=== PATIENT | male | born 1965 | race Caucasian/White ===

== ENCOUNTER 2021-07-12 11:23 | Inpatient (IN) ==
--- NOTE | 2021-07-12 12:10 | Emergency Department Note ---
Impression & Plan Pulmonary emboli ADMIT ED Provider Note HPI: The patient is a 55-year-old gentleman who presents the emergency department with chief complaint of shortness of breath that has been ongoing for the past several days. Patient states that his shortness of breath does seem to worsen with exertion. He denies any chest pain. Patient denies any recent fever. On arrival here to the ED he is in no acute distress, he is mildly tachycardic but otherwise saturating well on room air. ROS: -Pulmonary: Shortness of breath with exertion *10 point review systems was conducted and is otherwise negative unless stated above *Outpatient medications and allergy history reviewed PE: General: Alert, NAD HEENT: Normocephalic, atraumatic Eyes: Extraocular eye movement is intact, no scleral erythema Pulmonary: Clear to auscultation bilaterally, no wheezing Cardio: Tachycardic rate with regular rhythm GI: Abdomen is soft, nontender : No suprapubic tenderness MSK: No evidence of trauma or malformation of the extremities, no edema Skin: No evidence of rash Neuro: Alert, no focal deficits Psychiatric: Cooperative quality assurance monitor final: - An order was placed for continuous cardiac monitoring - Patient was noted to be in sinus rhythm with rate of 103 EKG: Rate: 103 Rhythm: Sinus tachycardia Intervals: QTC 508 ms, otherwise within normal limits ST changes: No ST elevation Time: 1414 Medical Decision Making: Patient presented to the emergency department the chief complaint of exertional shortness of breath, states is been worsening over about the past 3 weeks. He denies any recent fevers, denies any chest pain. On arrival he is noted to be tachycardic but otherwise he is hemodynamically stable. Patient was initially seen in the [facility] area secondary to nursing staff shortages and lack of bed availability within the emergency room. Orders were placed including IV, lab work, lab work shows evidence of an elevated high-sensitivity troponin at 77, D-dimer also elevated greater than 4000, EKG shows some T wave inversions in leads V1 through V5. No evidence of ST elevation. Patient was roomed in a standard ED bed. Patient remained hemodynamically stable on equipment monitor phototypesetting with only mild tachycardia but otherwise saturating well on room air, blood pressure stable. CT angiography of the chest shows evidence of bilateral pulmonary emboli with saddle embolus. There is evidence of right heart strain on CT imaging. I discussed the above f indings with the on-call patternmaker helper, Dr. Duarte, who states he will evaluate the patient at the bedside. At this time we will hold off on potential lysis secondary to his hemodynamic stability, no oxygen requirement. Patient was given aspirin, he was started on heparin drip and given heparin bolus. Case was discussed with the on-call admitting resident for [facility] the patient was admitted in hemodynamically stable condition for further management by the hospitalist service and the patternmaker helper. * CRITICAL CARE TIME: ( 55 ) minutes -Management of bilateral pulmonary emboli with saddle embolus and elevated troponin requiring initiation of heparin drip, interpretation of diagnostic studies, time spent at the bedside, discussion with other physicians/specialist, arrangement of admission Diagnosis: 1. Bilateral pulmonary emboli, acute, with right heart strain 2. Elevated troponin level 3. Tachycardia Disposition: Admission Kei Cevallos DO Emergency Medicine Past Med/Surg History Social History Smoking Status: Never smoker Feels Safe at Home: Yes Allergies Allergies Allergy/AdvReac Type Severity Reaction Status Date / Time No Known Allergies Allergy Unverified 07/12/21 14:44 Home Meds Home Medications Medication Instructions Recorded Confirmed No Known Home Medications 07/12/21 07/12/21 Results & Data (ED) Vital Signs Vital Signs - 24 hr 07/12/21 11:41 07/12/21 11:45 07/12/21 14:30 Temperature 35.9 C L Temperature Source Temporal Artery Scan Pulse Rate 112 H Pulse Rate from SpO2 Sensor Respiratory Rate 20 Respiratory Effort / Characteristics Non-Labored Respiratory Depth Normal Blood Pressure 154/108 H 151/102 H Blood Pressure Mean 123 118 Blood Pressure Position Sitting Pulse Oximetry 93 Oxygen Delivery Method Room Air Room Air Sepsis Recent Fever Within 48 Hours No Sepsis New/Unexplained Change in Mental Status N/A Sepsis Action Taken by Nursing No Action Required 07/12/21 14:31 07/12/21 14:35 07/12/21 14:45 Temperature Temperature Source Pulse Rate 103 H 99 H Pulse Rate from SpO2 Sensor 103 H 97 H Respiratory Rate 14 20 Respiratory Effort / Characteristics Respiratory Depth Blood Pressure 138/102 H Blood Pressure Mean 114 Blood Pressure Position Pulse Oximetry 92 95 93 Oxygen Delivery Method Room Air Sepsis Recent Fever Within 48 Hours Sepsis New/Unexplained Change in Mental Status Sepsis Action Taken by Nursing 07/12/21 15:00 07/12/21 15:12 Temperature Temperature Source Pulse Rate 97 H 101 H Pulse Rate from SpO2 Sensor 99 H Respiratory Rate 9 L 18 Respiratory Effort / Characteristics Respiratory Depth Blood Pressure 154/89 H Blood Pressure Mean 110 Blood Pressure Position Pulse Oximetry 94 94 Oxygen Delivery Method Room Air Sepsis Recent Fever Within 48 Hours Sepsis New/Unexplained Change in Mental Status Sepsis Action Taken by Nursing Laboratory Data Result diagrams: 07/12/21 12:18 07/12/21 12:18 Lab Results 07/12/21 07/12/21 07/12/21 Range/Units 12:18 12:18 12:18 WBC 7.90 (4.8-10.8) K/uL RBC 5.42 (4.7-6.1) M/uL Hgb 16.3 (14.0-18.0) g/dL Hct 46.8 (42-52) % MCV 86.3 (80-100) fL MCH 30.1 (25-34) pg MCHC 34.8 (32-36) g/dL RDW Std Deviation 39.8 (36.4-46.3) fL RDW Coeff of Warren 12.6 (11.5-14.5) % Plt Count 173 (130-400) K/uL MPV 10.1 (7.4-10.4) fL Immature Gran % (Auto) 0.1 % Neut % (Auto) 68.9 % Lymph % (Auto) 20.5 % Bullitt % (Auto) 9.1 % Eos % (Auto) 1.0 % Baso % (Auto) 0.4 % Neut # (Auto) 5.44 (1.4-6.5) K/uL Lymph # (Auto) 1.62 (1.2-3.4) K/uL Bullitt # (Auto) 0.72 H (0.11-0.59) K/uL Eos # (Auto) 0.08 (0-0.5) K/uL Baso # (Auto) 0.03 (0-0.2) K/uL Immature Gran # (Auto) 0.01 (0.00-0.02) K/uL PT 11.5 (9.0-12.0) Seconds INR 1.1 (0.9-1.1) APTT 25.5 (21.0-31.0) Seconds PTT Ratio 0.9 D-Dimer 4310 H* (0-500) ug/L FEU Sodium 139 (136-145) mmol/L Potassium 3.7 (3.5-5.1) mmol/L Chloride 103 (98-107) mmol/L Carbon Dioxide 30 (21-32) mmol/L Anion Gap 6 (3-11) BUN 18 (6-23) mg/dl Creatinine 1.06 (0.6-1.4) mg/dl Est Cr Clr Drug Dosing 104.9 ml/min Est GFR ( Amer) 92.4 ml/min Est GFR (Non-Af Amer) 79.7 ml/min BUN/Creatinine Ratio 17.0 (10-20) Glucose 104 H (70-99(Fasting)) mg/dl Calcium 9.2 (8.5-10.1) mg/dl Magnesium 2.2 (1.7-2.4) mg/dl Total Bilirubin 0.7 (0.2-1.0) mg/dl AST 33 (13-39) U/L ALT 48 (7-52) U/L Alkaline Phosphatase 61 (34-104) U/L Troponin I High Sens 77.7 H* (0-20) pg/ml Total Protein 7.4 (6.0-8.3) gm/dl Albumin 4.6 (3.4-5.0) gm/dl Globulin 2.8 (2.5-4.0) gm/dl Albumin/Globulin Ratio 1.6 (0.9-2) SARS-CoV-2, RNA, NAAT (NEGATIVE) 07/12/21 Range/Units 14:00 WBC (4.8-10.8) K/uL RBC (4.7-6.1) M/uL Hgb (14.0-18.0) g/dL Hct (42-52) % MCV (80-100) fL MCH (25-34) pg MCHC (32-36) g/dL RDW Std Deviation (36.4-46.3) fL RDW Coeff of Warren (11.5-14.5) % Plt Count (130-400) K/uL MPV (7.4-10.4) fL Immature Gran % (Auto) % Neut % (Auto) % Lymph % (Auto) % Bullitt % (Auto) % Eos % (Auto) % Baso % (Auto) % Neut # (Auto) (1.4-6.5) K/uL Lymph # (Auto) (1.2-3.4) K/uL Bullitt # (Auto) (0.11-0.59) K/uL Eos # (Auto) (0-0.5) K/uL Baso # (Auto) (0-0.2) K/uL Immature Gran # (Auto) (0.00-0.02) K/uL PT (9.0-12.0) Seconds INR (0.9-1.1) APTT (21.0-31.0) Seconds PTT Ratio D-Dimer (0-500) ug/L FEU Sodium (136-145) mmol/L Potassium (3.5-5.1) mmol/L Chloride (98-107) mmol/L Carbon Dioxide (21-32) mmol/L Anion Gap (3-11) BUN (6-23) mg/dl Creatinine (0.6-1.4) mg/dl Est Cr Clr Drug Dosing ml/min Est GFR ( Amer) ml/min Est GFR (Non-Af Amer) ml/min BUN/Creatinine Ratio (10-20) Glucose (70-99(Fasting)) mg/dl Calcium (8.5-10.1) mg/dl Magnesium (1.7-2.4) mg/dl Total Bilirubin (0.2-1.0) mg/dl AST (13-39) U/L ALT (7-52) U/L Alkaline Phosphatase (34-104) U/L Troponin I High Sens (0-20) pg/ml Total Protein (6.0-8.3) gm/dl Albumin (3.4-5.0) gm/dl Globulin (2.5-4.0) gm/dl Albumin/Globulin Ratio (0.9-2) SARS-CoV-2, RNA, NAAT NEGATIVE (NEGATIVE) Administered Medications Heparin Sodium/Dextrose (Heparin Sodium/Dextrose) 25,000 units in 500 mls @ 33 mls/hr IV .[id number] [facility]; Protocol Stop: 08/11/21 14:14 Last Admin: 07/12/21 14:27 Dose: 1,650 units/hr, 33 mls/hr Documented by: [id number] Cosigned by: [id number] Discontinued Medications Heparin Sodium (Porcine) (Heparin Sod (Porcine) 1000 Unit/Ml) 1 units IV NOW ONE Stop: 07/12/21 14:14 Last Admin: 07/12/21 14:26 Dose: 7,000 units Documented by: [id number] Cosigned by: [id number] Heparin Sodium/Dextrose (Heparin Iv Adult Wt-Based Standard With Bolus Protocol) 1 ea IV NOW STA; Protocol Stop: 07/12/21 13:59 Last Admin: 07/12/21 14:33 Dose: Not Given Documented by: [id number] Ioversol (Optiray 320 125ml) 120 ml IV ONCE ONE Stop: 07/12/21 13:54 Last Admin: 07/12/21 13:54 Dose: 120 ml Documented by: [id number] Imaging Data Radiologist's Impression: Chest CTA 07/12/21 13:05 CT ANGIOGRAPHY OF THE CHEST, PULMONARY EMBOLUS PROTOCOL CLINICAL HISTORY: Shortness of breath. Evaluate for pulmonary embolus. COMPARISON STUDY: No previous studies for comparison. TECHNIQUE: Following IV administration of 120 mL of Optiray, helical axial images of the chest were obtained utilizing the pulmonary embolus protocol. Maximal intensity projections and sagittal and coronal reformats were viewed on an independent 3D workstation. IV contrast was administered without complication. Automated exposure control was utilized for the study. A dose lowering technique was utilized adhering to the principles of ALARA. CT DOSE: 856.78 mGy.cm FINDINGS: Extensive bilateral pulmonary emboli are noted, including several saddle emboli. Emboli extend into the lobar and segmental branches of both lungs. There is straightening of the interventricular septum with slight leftward bowing. Dilatation of the right heart chambers is noted. There is no pericardial effusion. No thoracic lymphadenopathy is present. There is no pulmonary infarct. Cluster tree-in-bud nodules within the superior segment of the left lower lobe are present. Central airways are patent. No acute fracture or suspicious lesion within the visualized bony thorax is present. A few subcentimeter lateral segment hepatic lesions are too small to characterize. However, these are probably benign. IMPRESSION: 1. Extensive bilateral pulmonary emboli, including several saddle emboli. CT findings consistent with right heart strain. Findings discussed with Dr. Cevallos at time of dictation. 2. Small cluster of tree-in-bud nodules within the superior segment of the left lower lobe suggestive of an infectious process. ACT 112: Negative or not required by law. Electronically signed by: Inderjit Dias M.D. 07/12/2021 2:06 PM Discharge Plan Visit Data Chief Complaint: Shortness of Breath/Dyspnea Stated Complaint: DIFFICULTY BREATHING, LIGHT HEADED, WEAK ED Provider: Kei Cevallos Discharge Problem: Pulmonary emboli Forms Stand Alone Forms: [facility] 1CLICK Prescriptions Prescriptions: No Action No Known Home Medications RF: 0 Referrals Referrals: Delfino Bender MD [Primary Care Provider] - Discharge Problem: Pulmonary emboli Qualifiers: Pulmonary embolism type: saddle Chronicity: acute Acute cor pulmonale presence: unspecified Qualified Code(s): I26.92 - Saddle embolus of pulmonary artery without acute cor pulmonale
[2021-07-12 12:35] LABS: Basophils # (auto) 0.03 K/uL (0-0.2); Basophils % (auto) 0.4 %; Eosinophils # (auto) 0.08 K/uL (0-0.5); Hematocrit (blood only) 46.8 % (42-52); Hemoglobin 16.3 g/dL (14.0-18.0); Immature Granulocytes # (auto) 0.01 K/uL (0.00-0.02); Immature Granulocytes % (auto) 0.1 %; Lymphocytes # (auto) 1.62 K/uL (1.2-3.4); Lymphocytes % (auto) 20.5 %; Mean Corpuscular Hemoglobin 30.1 pg (25-34); Mean Corpuscular Hgb Conc 34.8 g/dL (32-36); Mean Corpuscular Volume 86.3 fL (80-100); Mean Platelet Volume 10.1 fL (7.4-10.4); Monocytes # (auto) 0.72 K/uL (0.11-0.59); Monocytes % (auto) 9.1 %; Neutrophils # (auto) 5.44 K/uL (1.4-6.5); Neutrophils % (auto) 68.9 %; Platelet Count 173 K/uL (130-400); RDW Coefficient of Variation 12.6 % (11.5-14.5); RDW Standard Deviation 39.8 fL (36.4-46.3); Red Blood Count 5.42 M/uL (4.7-6.1)
[2021-07-12 12:50] LABS: INR 1.1 (0.9-1.1); Partial Thromboplastin Ratio 0.9; Partial Thromboplastin Time 25.5 Seconds (21.0-31.0); Prothrombin Time 11.5 Seconds (9.0-12.0)
[2021-07-12 13:02] LABS: D Dimer 4310 ug/L FEU (0-500)
[2021-07-12 13:03] LABS: Albumin Globulin Ratio 1.6 (0.9-2); Albumin Level 4.6 gm/dl (3.4-5.0); Bilirubin,Total 0.7 mg/dl (0.2-1.0); Calcium 9.2 mg/dl (8.5-10.1); Creatinine Clr Calc Pharmacy 104.9 ml/min; Est GFR (African American) 92.4 ml/min; Est GFR (Non-African American) 79.7 ml/min; Globulin 2.8 gm/dl (2.5-4.0); Magnesium 2.2 mg/dl (1.7-2.4); Potassium 3.7 mmol/L (3.5-5.1); Total Protein 7.4 gm/dl (6.0-8.3)
[2021-07-12 13:14] LABS: Troponin I High Sensitivity 77.7 pg/ml (0-20)
[2021-07-12] MEDS ORDERED: OPTIRAY 320 125ml IV ONE (13:53)
[2021-07-12] MEDS ORDERED: Heparin IV Adult Wt-Based Standard WITH Bolus Protocol IV STA (13:58)
--- NOTE | 2021-07-12 14:08 | CT Scan Report ---
CT ANGIOGRAPHY OF THE CHEST, PULMONARY EMBOLUS PROTOCOL CLINICAL HISTORY: Shortness of breath. Evaluate for pulmonary embolus. COMPARISON STUDY: No previous studies for comparison. TECHNIQUE: Following IV administration of 120 mL of Optiray, helical axial images of the chest were o btained utilizing the pulmonary embolus protocol. Maximal intensity projections and sagittal and cor onal reformats were viewed on an independent 3D workstation. IV contrast was administered without co mplication. Automated exposure control was utilized for the study. A dose lowering technique was ut ilized adhering to the principles of ALARA. CT DOSE: 856.78 mGy.cm FINDINGS: Extensive bilateral pulmonary emboli are noted, including several saddle emboli. Emboli ex tend into the lobar and segmental branches of both lungs. There is straightening of the interventricu lar septum with slight leftward bowing. Dilatation of the right heart chambers is noted. There is no pericardial effusion. No thoracic lymphadenopathy is present. There is no pulmonary infarct. Cluster tree-in-bud nodules within the superior segment of the left lower lobe are present. Central airways a re patent. No acute fracture or suspicious lesion within the visualized bony thorax is present. A few subcentimeter lateral segment hepatic lesions are too small to characterize. However, these are prob ably benign. IMPRESSION: 1. Extensive bilateral pulmonary emboli, including several saddle emboli. CT findings consistent with right heart strain. Findings discussed with Dr. Cevallos at time of dictation. 2. Small cluster of tree-in-bud nodules within the superior segment of the left lower lobe suggestive of an infectious process. ACT 112: Negative or not required by law. Electronically signed by: Inderjit Dias M.D. 07/12/2021 2:06 PM
[2021-07-12] MEDS ORDERED: HEPARIN SOD (PORCINE) 1000 UNIT/ML IV ONE (14:13)
[2021-07-12] MEDS: HEPARIN SODIUM/DEXTROSE 25,000 UNITS/500 ML BAG IV SCH (14:27)
--- NOTE | 2021-07-12 15:19 | History & Physical Report ---
Date of Service July 12, 2021 Assessment & Plan (1) Pulmonary emboli: Plan: Acute pulmonary emboli and acute deep vein thrombosis in a n sedaentary male with BMI 38. sPESI: 1, 8.9% mortality Will admit to PCU. Placed on heparin drip. CT scan of chest: 1. Extensive bilateral pulmonary emboli, including several saddle emboli. CT findings consistent with right heart strain. 2. Small cluster of tree-in-bud nodules within the superior segment of the left lower lobe suggestive of an infectious process. Doppler U/S of lower extremities: Left femoral and popliteal vein thrombus. This was a provoked episode. May not require lifelong anticoagulation. History of Present Illness Chief Complaint: SOB Primary Care Provider: Delfino Bender MD This is a pleasant 55 yo male who who presents to the hospital with SOB. Patient states this SOB began this past Sunday and has gradually worsened. He denies any fever, chills, nausea, vomiting, unintentional weight loss. Patient denies any personal history of blood clots, nor family history. Patient reports he has had a sedentary lifestyle over the past few years since [facility]. Patient reports prior that he would go to the Gym and run for miles. 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 He does have a sedentary lifestyle and states for 3-4 hours straight regularly. No family history of blood clots. Social history: Lifetime non-smoker. Allergies Allergy/AdvReac Type Severity Reaction Status Date / Time No Known Allergies Allergy Unverified 07/12/21 14:44 Home Medications Medication Instructions Recorded Confirmed Type No Known Home Medications 07/12/21 07/12/21 History Past Med/Surg History Social History Smoking Status: Never smoker Feels Safe at Home: Yes Review of Systems Constitutional: no fever Eyes: no blind spots and no diplopia Ear, Nose, Mouth, Throat: no ear pain Respiratory: no cough and no change in sputum Cardiovascular: + dyspnea and + dyspnea on exertion Gastrointestinal: no abdominal pain and no bloating Genitourinary: no dysuria or no urinary frequency Musculoskeletal: no swelling Integumentary: no acne Neurologic: no gait abnormality and no falls Psychiatric: no behavioral changes Endocrine: no fatigue and no polydipsia Hematologic / Lymphatic: no easy bleeding and no coagulopathy Allergy / Immunological: no GI upset with certain foods Physical Exam Constitutional: WD/WN, vitals as above Eyes: PERRL, conjunctivae normal, anicteric sclerae ENMT: external ear and nose normal, oropharynx normal Neck: trachea midline, no thyromegaly Respiratory: normal respiratory effort, lungs clear to auscultation Cardiovascular: Rate/Rhythm: regular rhythm and + tachycardic Heart Sounds: normal S1 and normal S2 Gastrointestinal (Abdomen): normal bowel sounds, soft, nontender, no hepatosplenomegaly Musculoskeletal: no cyanosis or clubbing, extremities motor strength 5/5 Skin: no rashes, warm and dry Neurologic: PERRL, EOMI, accommodation nl, no face palsy, no dysarthria Psychiatric: A+Ox3, euthymic affect Lymphatic: no cervical or axillary lymphadenopathy Results & Data Results & Data ([facility]) Vital Signs (Past 12 Hours) Vital Signs Temp Pulse Resp BP Pulse Ox 07/12/21 15:12 101 H 18 94 07/12/21 15:00 97 H 9 L 154/89 H 94 07/12/21 14:45 99 H 20 138/102 H 93 07/12/21 14:35 95 07/12/21 14:31 103 H 14 92 07/12/21 14:30 151/102 H 07/12/21 11:41 35.9 C L 112 H 20 154/108 H 93 Code Status & VTE Plan VTE Prophylaxis Plan VTE Prophylaxis will be ordered: Yes PG Care Time/CCT Total # of Minutes Spent Total Time Spent with Patient: Total time spent is greater than 50% in coordination of care (as documented) at patient's floor/unit and/or counseling patient: Coding Level of Care Code 68115 Initial Inpt Care Lvl 3 Diagnoses Pulmonary emboli I26.92 Acute cor pulmonale presence: unspecified Chronicity: acute Pulmonary embolism type: saddle (1) Pulmonary emboli Acute cor pulmonale presence: unspecified Chronicity: acute Pulmonary embolism type: saddle Qualified Code(s): I26.92 - Saddle embolus of pulmonary artery without acute cor pulmonale
--- NOTE | 2021-07-12 15:28 | Electrocardiogram Report ---
Test Reason : Blood Pressure : / mmHG Vent. Rate : 103 BPM Atrial Rate : 103 BPM P-R Int : 152 ms QRS Dur : 088 ms QT Int : 388 ms P-R-T Axes : 067 121 -24 degrees QTc Int : 508 ms Poor data quality, interpretation may be adversely affected Sinus tachycardia Right axis deviation T wave abnormality, consider inferior ischemia T wave abnormality, consider anterolateral ischemia Abnormal ECG No previous ECGs available Confirmed by Wilner Hitchcock ([id number]) on 07/12/2021 3:28:15 PM Referred By: REFERRED SELF Confirmed By:Wilner Hitchcock
--- NOTE | 2021-07-12 15:37 | XCELERA ---
[id number]
--- NOTE | 2021-07-12 15:38 | XRay Report ---
XR chest 1V portable HISTORY: Shortness of breath. COMPARISON: None. FINDINGS: No pneumothorax. No pleural fusions. The heart is normal in size. No focal lung consolidati ons to suggest pneumonia. No evidence for pulmonary edema. A few left basilar linear densities favor subsegmental atelectasis are scarring. IMPRESSION: No acute process. ACT 112: Negative or not required by law. Electronically signed by: Pedrito Melvin M.D. 07/12/2021 3:36 PM
--- NOTE | 2021-07-12 16:13 | Pulmonary Consultation ---
Date of Consultation July 12, 2021 Assessment & Plan (1) Pulmonary emboli: -- Pulmonary embolism sPESI: 1, 8.9% mortality Troponin 77, BNP 137 Unprovoked EKG: Sinus tachycardia with right axis deviation, T wave inversions on the lateral leads 2D echo 07/12/2021: EF 55 to 60%, moderately reduced right-ventricular function, mildly dilated RV Plan: Patient is following to intermediate-high risk PE given the elevated troponin and BNP along with moderately reduced right ventricular function on the 2D echo These are the cases where catheter directed thrombolysis could be considered. Systemic tPA 50 mg could also be considered. Given the hemodynamic stability of the patient and saturation being 94% on room air with no chest pain, heparin drip IV is okay to be continued for the time being I would like to get recommendation from tertiary center if they are willing to do catheter directed thrombolysis for the patient given the high clot burden At the patient's case hypoxic and/or hypotensive then 50 mg tPA IV should be given Follow-up Doppler bilateral lower extremity Factor V Leiden, prothrombin mutation as well as homocystine level in the serum ordered Rest of the hypercoagulable work-up to be done after 3 months Patient will likely need lifelong anticoagulation Case was discussed with Dr. Alas and Dr. Reyes Please note the above document was generated using voice recognition software. It may contain grammatical, syntax or spelling errors.Any formal questions or concerns about the content, text or information contained within the body of this dictation should be directly addressed to the provider for clarification. Acute cor pulmonale presence: unspecified Chronicity: acute Pulmonary embolism type: saddle Qualified Code(s): I26.92 - Saddle embolus of pulmonary artery without acute cor pulmonale History of Present Illness History of Present Illness 55-year-old male presented to the hospital because of shortness of breath Past medical history: Nonsignificant Patient is not vaccinated against COVID-19 As per the patient he started complaining of easy fatigability and shortness of breath while doing even regular work at home starting Sunday. Today it got worse to such a degree that he had to come to the ER Denies any cough, no hemoptysis No chest pain, no dizziness, no palpitation, no diaphoresis No fever or chills No dysuria, diarrhea. Denies any history of blood clots in the past No recent travel history. 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 He does have sedentary lifestyle and states for 3-4 hours straight regularly. No family history of blood clots. Social history: Lifetime non-smoker. Allergies Allergy/AdvReac Type Severity Reaction Status Date / Time No Known Allergies Allergy Unverified 07/12/21 14:44 Home Medications Medication Instructions Recorded Confirmed Type No Known Home Medications 07/12/21 07/12/21 History Patient History Social History Smoking Status: Never smoker Feels Safe at Home: Yes Review of Systems Review of Systems: All systems reviewed & are unremarkable except as noted in HPI & below Physical Exam Physical Exam: Constitutional: No acute distress HEENT: EOMI, PERRLA Respiratory system: Good air entry bilaterally, no wheeze, no rhonchi, no crackles CVS: S1-S2 positive, no murmurs or gallops, tachycardia Abdomen: Soft, nontender, nondistended, positive bowel sounds x4, obese Extremities: +2 pulses bilaterally radialis/ dorsalis pedis, no cyanosis, +1 pitting edema bilateral lower extremity Neuro: Awake alert oriented x3 Psych: Normal mood and affect G/U: No Ashley Skin: no rashes, warm and dry Lymphatic: no cervical or axillary lymphadenopathy Results & Data Results & Data ([facility]) Vital Signs (Past 12 Hours) Vital Signs Temp Pulse Resp BP Pulse Ox 07/12/21 14:35 95 07/12/21 14:31 103 H 14 92 07/12/21 14:30 151/102 H 07/12/21 11:41 35.9 C L 112 H 20 154/108 H 93 Laboratory Results 07/12/21 12:18 07/12/21 12:18 PG Care Time/CCT Total # of Minutes Spent Total Time Spent with Patient: Total time spent is greater than 50% in coordination of care (as documented) at patient's floor/unit and/or counseling patient: [place] [address] Inpt Consult Level 5 Patient Type New Diagnoses Pulmonary emboli I26.92 Acute cor pulmonale presence: unspecified Chronicity: acute Pulmonary embolism type: saddle
--- NOTE | 2021-07-12 16:52 | Ultrasound Report ---
US venous doppler LE BI CLINICAL HISTORY: r/o DVT, B/l TECHNIQUE: Bilateral lower extremity real-time compression venous ultrasound with Color Doppler imagi ng. Utilizing real-time ultrasonic imaging multiple real time high-resolution ultrasonic images with compression and noncompression maneuvers of the deep venous system in addition to color doppler imagi ng were performed from the common femoral vein through the proximal calf veins. COMPARISON: None available at the time of this dictation. FINDINGS: No deep venous thrombosis seen on the right. The left, there is a thrombus in the left femoral vein e xtending to the popliteal vein. Impression: Left femoral and popliteal vein thrombus. No evidence of right deep venous thrombus. ACT 112: Negative or not required by law. Electronically signed by: Jonathon Wilson M.D. 07/12/2021 4:50 PM
[2021-07-12 20:52] LABS: INR 1.1 (0.9-1.1); Prothrombin Time 11.9 Seconds (9.0-12.0)
[2021-07-12] MEDS ORDERED: LORATADINE 10 MG TAB PO ONE (21:15)
[2021-07-12] MEDS ORDERED: MELATONIN 3 MG TAB PO PRN (21:17)
[2021-07-12 21:49] LABS: Partial Thromboplastin Ratio 1.8
[2021-07-12 21:51] LABS: Partial Thromboplastin Time 49.8 Seconds (21.0-31.0)
[2021-07-13 04:37] LABS: Hematocrit (blood only) 44.2 % (42-52); Hemoglobin 15.4 g/dL (14.0-18.0); Mean Corpuscular Hemoglobin 30.4 pg (25-34); Mean Corpuscular Hgb Conc 34.8 g/dL (32-36); Mean Corpuscular Volume 87.2 fL (80-100); Mean Platelet Volume 10.3 fL (7.4-10.4); Platelet Count 168 K/uL (130-400); RDW Coefficient of Variation 12.4 % (11.5-14.5); RDW Standard Deviation 39.6 fL (36.4-46.3); Red Blood Count 5.07 M/uL (4.7-6.1); White Blood Count 7.83 K/uL (4.8-10.8)
[2021-07-13 04:51] LABS: Albumin Level 4.2 gm/dl (3.4-5.0); BUN Creatinine Ratio 14.3 (10-20); Bilirubin Direct 0.2 mg/dl (0-0.2); Bilirubin,Total 0.9 mg/dl (0.2-1.0); Calcium 8.9 mg/dl (8.5-10.1); Chol HDL Ratio 5.8 (0-5); Creatinine Clr Calc Pharmacy 112.6 ml/min; Est GFR (African American) 101.6 ml/min; Est GFR (Non-African American) 87.7 ml/min; Potassium 3.7 mmol/L (3.5-5.1); Total Protein 6.8 gm/dl (6.0-8.3)
[2021-07-13 05:04] LABS: Partial Thromboplastin Ratio 1.7
[2021-07-13 05:24] LABS: Partial Thromboplastin Time 47.2 Seconds (21.0-31.0)
[2021-07-13] MEDS: HEPARIN SODIUM/DEXTROSE 25,000 UNITS/500 ML BAG IV SCH ×2 (06:27→20:40)
--- NOTE | 2021-07-13 09:04 | Pulmonology Progress Note ---
Date of Service July 13, 2021 Assessment & Plan (1) Pulmonary emboli: Acute cor pulmonale presence: unspecified Chronicity: acute Pulmonary embolism type: saddle Qualified Code(s): I26.92 - Saddle embolus of pulmonary artery without acute cor pulmonale (2) DVT (deep venous thrombosis): Plan: -- Pulmonary embolism sPESI: 1, 8.9% mortality Troponin 77, BNP 137 Unprovoked Case was discussed with controller coal or ore at [place] on 07/12/2021 by , recommended to continue with heparin drip for the time being and if there is any worsening then transferring the patient if need be EKG: Sinus tachycardia with right axis deviation, T wave inversions on the lateral leads 2D echo 07/12/2021: EF 55 to 60%, moderately reduced right-ventricular function, mildly dilated RV -- Acute left-sided DVT Left femoral popliteal vein Plan: Recommend continuing with heparin drip for another 24-48 hours and then transitioning it to DOACs In the meantime if there is any worsening in patient's respiratory or hemodynamic status, tPA 50 mg would be considered Incentive spirometry will be beneficial. All question inquiries of the patient were answered in depth Case was discussed with RN who was also at bedside during examination and interrogation Please note the above document was generated using voice recognition software. It may contain grammatical, syntax or spelling errors.Any formal questions or concerns about the content, text or information contained within the body of this dictation should be directly addressed to the provider for clarification. Admission and Anticipated Discharge Date Admission Date: July 12, 2021 Subjective Patient seen and examined at bedside. No acute distress, no adverse events overnight Denies any chest pain, no dizziness, no palpitation, no diaphoresis He was saturating 94% on room air at the time of examination with heart rate in the high 90s. Fair appetite No nausea or vomiting Review of Systems Review of Systems: All systems reviewed & are unremarkable except as noted in Subjective Physical Exam Physical Exam: Constitutional: No acute distress HEENT: EOMI, PERRLA Respiratory system: Good air entry bilaterally, no wheeze, no rhonchi, no crackles CVS: S1-S2 positive, no murmurs or gallops, tachycardia Abdomen: Soft, nontender, nondistended, positive bowel sounds x4, obese Extremities: +2 pulses bilaterally radialis/ dorsalis pedis, no cyanosis, +1 pitting edema bilateral lower extremity Neuro: Awake alert oriented x3 Psych: Normal mood and affect G/U: No Ashley Skin: no rashes, warm and dry Lymphatic: no cervical or axillary lymphadenopathy Results & Data Results & Data ([facility]) Vital Signs (Past 12 Hours) Vital Signs Temp Pulse Pulse Resp BP Pulse Ox 07/13/21 07:00 36.5 C 93 H 16 149/89 H 91 07/13/21 03:00 36.6 C 90 15 130/97 93 07/13/21 00:31 101 H 07/12/21 22:49 37 C 99 H 16 128/86 92 07/12/21 22:01 105 H 07/12/21 21:44 36.8 C 107 H 15 145/92 H 93 Laboratory Results 07/13/21 04:06 07/13/21 04:06 PG Care Time/CCT Total # of Minutes Spent Total Time Spent with Patient: Total time spent is greater than 50% in coordination of care (as documented) at patient's floor/unit and/or counseling patient: Coding Level of Care Code 33934 Subseq Hosp Care Lvl 2 Diagnoses Pulmonary emboli I26.92 Acute cor pulmonale presence: unspecified Chronicity: acute Pulmonary embolism type: saddle DVT (deep venous thrombosis) I82.409
[2021-07-13] MEDS ORDERED: FAMOTIDINE 20 MG TAB PO ONE (12:00)
[2021-07-13] MEDS ORDERED: FAMOTIDINE 10 MG TABLET PO PRN (12:16)
--- NOTE | 2021-07-13 12:17 | Hospitalist Progress Note ---
Date of Service July 13, 2021 Assessment & Plan (1) Pulmonary emboli: Plan: Acute pulmonary emboli and acute deep vein thrombosis Risk factors of sedentary lifestyle and BMI 38. sPESI: 1, 8.9% mortality Continue on PCU. Continue on standard dose heparin IV drip. Consider switching to oral anticoagulation tomorrow. CT scan of chest: 1. Extensive bilateral pulmonary emboli, including several saddle emboli. CT findings consistent with right heart strain. 2. Small cluster of tree-in-bud nodules within the superior segment of the left lower lobe suggestive of an infectious process. Doppler U/S of lower extremities: Left femoral and popliteal vein thrombus. Given lack of reversible cause would recommend lifelong treatment. Routine cancer screening to be performed as an outpatient Admission and Anticipated Discharge Date Admission Date: July 12, 2021 Subjective Given severity of illness patient appears to be doing very well. He reports slight improvement in fatigue and shortness of breath since admission. No respiratory distress and speaking in full sentences. Requesting Tums for mild heartburn. Reports taking these usually once a month. Requesting something to help with sleep just while in the hospital Review of Systems Review of Systems: All systems reviewed & are unremarkable except as noted in Subjective Physical Exam Constitutional: WD/WN, vitals as above + obese Respiratory: normal respiratory effort, lungs clear to auscultation Cardiovascular: Rate/Rhythm: regular rhythm and + tachycardic Heart Sounds: no murmur Extremities: normal capillary refill; no calf tenderness and no pedal edema Gastrointestinal (Abdomen): Percussion/Palpation: abdomen soft; abdomen nontender Skin: no rashes, warm and dry Neurologic: moves all extremities and awake; not confused Psychiatric: A+Ox3, euthymic affect Results & Data Results & Data ([facility]) Vital Signs (Past 12 Hours) Vital Signs Temp Pulse Pulse Resp BP Pulse Ox 07/13/21 11:00 36.7 C 98 H 18 146/95 H 90 07/13/21 08:01 91 H 07/13/21 07:00 36.5 C 93 H 16 149/89 H 91 07/13/21 03:00 36.6 C 90 15 130/97 93 07/13/21 00:31 101 H PG Care Time/CCT Total # of Minutes Spent Total Time Spent with Patient: Total time spent is greater than 50% in coordination of care (as documented) at patient's floor/unit and/or counseling patient: Coding Level of Care Code 50127 Subseq Hosp Care Lvl 2 Diagnoses Pulmonary emboli I26.92 Acute cor pulmonale presence: unspecified Chronicity: acute Pulmonary embolism type: saddle (1) Pulmonary emboli Acute cor pulmonale presence: unspecified Chronicity: acute Pulmonary embolism type: saddle Qualified Code(s): I26.92 - Saddle embolus of pulmonary artery without acute cor pulmonale
[2021-07-13] MEDS: ZOLPIDEM TARTRATE 5 MG TAB PO PRN (23:28)
[2021-07-14 07:12] LABS: Partial Thromboplastin Ratio 1.6; Partial Thromboplastin Time 43.7 Seconds (21.0-31.0)
--- NOTE | 2021-07-14 07:50 | Pulmonology Progress Note ---
Date of Service July 14, 2021 Assessment & Plan (1) Pulmonary emboli: Acute cor pulmonale presence: unspecified Chronicity: acute Pulmonary embolism type: saddle Qualified Code(s): I26.92 - Saddle embolus of pulmonary artery without acute cor pulmonale (2) DVT (deep venous thrombosis): Plan: -- Pulmonary embolism sPESI: 1, 8.9% mortality Troponin 77, BNP 137 Unprovoked Case was discussed with subsorter at [place] on 07/12/[address] Reyes, recommended to continue with heparin drip for the time being and if there is any worsening then transferring the patient if need be EKG on presentation: Sinus tachycardia with right axis deviation, T wave inversions on the lateral leads 2D echo 07/12/2021: EF 55 to 60%, moderately reduced right-ventricular function, mildly dilated RV -- Acute left-sided DVT Left femoral popliteal vein Plan: Okay to transition to DOACs in the evening. Patient will likely need oxygen on discharge. In the meantime if there is any worsening in patient's respiratory or hemodynamic status, tPA 50 mg would be considered Continue with incentive spirometry Case was discussed with RN Please note the above document was generated using voice recognition software. It may contain grammatical, syntax or spelling errors.Any formal questions or concerns about the content, text or information contained within the body of this dictation should be directly addressed to the provider for clarification. Admission and Anticipated Discharge Date Admission Date: July 12, 2021 Subjective Patient seen and examined at bedside. No acute distress He was having his breakfast just prior to me entering the room He was saturating 88% on room air. I asked him to take deep breaths and his oxygenation went up to 94-95% on room air Denies any chest pain, able to go to the bathroom without any issues. Denies any dizziness, no chest pain, no headache, no nausea, no vomiting. No hematuria, no hematochezia, no stacks is Review of Systems Review of Systems: All systems reviewed & are unremarkable except as noted in Subjective Physical Exam Physical Exam: Constitutional: No acute distress HEENT: EOMI, PERRLA Respiratory system: Good air entry bilaterally, no wheeze, no rhonchi, no crackles CVS: S1-S2 positive, no murmurs or gallops, tachycardia Abdomen: Soft, nontender, nondistended, positive bowel sounds x4, obese Extremities: +2 pulses bilaterally radialis/ dorsalis pedis, no cyanosis, +1 pitting edema bilateral lower extremity Neuro: Awake alert oriented x3 Psych: Normal mood and affect G/U: No Ashley Skin: no rashes, warm and dry Lymphatic: no cervical or axillary lymphadenopathy Results & Data Results & Data ([facility]) Vital Signs (Past 12 Hours) Vital Signs Temp Pulse Pulse Resp BP Pulse Ox 07/14/21 07:43 94 H 07/14/21 07:30 36.7 C 90 17 122/83 91 07/14/21 03:00 36.4 C L 99 H 18 129/85 96 07/13/21 23:00 99 H 07/13/21 22:40 36.8 C 98 H 18 148/97 H 93 Laboratory Results 07/13/21 04:06 07/13/21 04:06 PG Care Time/CCT Total # of Minutes Spent Total Time Spent with Patient: Total time spent is greater than 50% in coordination of care (as documented) at patient's floor/unit and/or counseling patient: Coding Level of Care Code 05749 Subseq Hosp Care Lvl 2 Diagnoses Pulmonary emboli I26.92 Acute cor pulmonale presence: unspecified Chronicity: acute Pulmonary embolism type: saddle DVT (deep venous thrombosis) I82.409
[2021-07-14] MEDS: HEPARIN SODIUM/DEXTROSE 25,000 UNITS/500 ML BAG IV SCH (11:25)
--- NOTE | 2021-07-14 12:37 | Hospitalist Progress Note ---
Date of Service July 14, 2021 Assessment & Plan (1) Pulmonary emboli: Plan: Acute pulmonary emboli and acute deep vein thrombosis Risk factors of sedentary lifestyle and BMI 38. sPESI: 1, 8.9% mortality Continue on PCU. CT scan of chest: 1. Extensive bilateral pulmonary emboli, including several saddle emboli. CT findings consistent with right heart strain. 2. Small cluster of tree-in-bud nodules within the superior segment of the left lower lobe suggestive of an infectious process. Doppler U/S of lower extremities: Left femoral and popliteal vein thrombus. Given lack of reversible cause would recommend life-long treatment. Routine cancer screening to be performed as an outpatient. Keep one more night. Will transition to DOAC tomorrow AM and likely discharge. May need home O2, though when he takes deep breaths, his SpO2 goes to 95-96%, so some of his hypoxemia is clearly just atelectasis. Admission and Anticipated Discharge Date Admission Date: July 12, 2021 Subjective Feeling well overall. Very interested in weight-loss and getting back in shape. Reports no fevers/chills, chest pain, shortness of breath, abdominal pain, nausea, or vomiting. Physical Exam Constitutional: WD/WN, vitals as above Eyes: EOM intact bilaterally; no conjunctival abnormality ENMT: external ear and nose normal, oropharynx normal Neck: trachea midline, no thyromegaly normal visual inspection Respiratory: normal respiratory effort, lungs clear to auscultation no respiratory distress Cardiovascular: RRR, no murmur, no edema Gastrointestinal (Abdomen): Inspection/Auscultation: abdomen normal to inspe ction; abdomen not distended Musculoskeletal: no cyanosis or clubbing, extremities motor strength 5/5 Skin: no rashes, warm and dry Neurologic: moves all extremities and awake Psychiatric: Orientation: alert, oriented to person and cooperative Results & Data Results & Data ([facility]) Vital Signs (Past 12 Hours) Vital Signs Temp Pulse Pulse Resp BP Pulse Ox 07/14/21 10:58 36.5 C 93 H 18 138/82 91 07/14/21 07:43 94 H 07/14/21 07:30 36.7 C 90 17 122/83 91 07/14/21 03:00 36.4 C L 99 H 18 129/85 96 PG Care Time/CCT Total # of Minutes Spent Total Time Spent with Patient: Total time spent is greater than 50% in coordination of care (as documented) at patient's floor/unit and/or counseling patient: Coding Level of Care Code 47621 Subseq Hosp Care Lvl 2 Diagnoses Pulmonary emboli I26.92 Acute cor pulmonale presence: unspecified Chronicity: acute Pulmonary embolism type: saddle (1) Pulmonary emboli Acute cor pulmonale presence: unspecified Chronicity: acute Pulmonary embolism type: saddle Qualified Code(s): I26.92 - Saddle embolus of pulmonary artery without acute cor pulmonale
[2021-07-14 14:25] LABS: Partial Thromboplastin Ratio 1.5; Partial Thromboplastin Time 41.6 Seconds (21.0-31.0)
[2021-07-14 19:38] LABS: Partial Thromboplastin Ratio 1.2; Partial Thromboplastin Time 31.8 Seconds (21.0-31.0)
[2021-07-14] MEDS ORDERED: HEPARIN SOD (PORCINE) 1000 UNIT/ML IV ONE (19:50)
[2021-07-14] MEDS: ZOLPIDEM TARTRATE 5 MG TAB PO PRN (23:07)
[2021-07-15] MEDS: HEPARIN SODIUM/DEXTROSE 25,000 UNITS/500 ML BAG IV SCH ×2 (00:40→13:28)
[2021-07-15 02:19] LABS: Hematocrit (blood only) 43.7 % (42-52); Hemoglobin 15.2 g/dL (14.0-18.0); Mean Corpuscular Hemoglobin 30.8 pg (25-34); Mean Corpuscular Hgb Conc 34.8 g/dL (32-36); Mean Corpuscular Volume 88.5 fL (80-100); Mean Platelet Volume 10.1 fL (7.4-10.4); Platelet Count 168 K/uL (130-400); RDW Coefficient of Variation 12.7 % (11.5-14.5); RDW Standard Deviation 40.5 fL (36.4-46.3); Red Blood Count 4.94 M/uL (4.7-6.1); White Blood Count 7.53 K/uL (4.8-10.8)
[2021-07-15 02:46] LABS: BUN Creatinine Ratio 17.4 (10-20); Calcium 8.9 mg/dl (8.5-10.1); Creatinine Clr Calc Pharmacy 101.1 ml/min; Est GFR (African American) 89.3 ml/min; Est GFR (Non-African American) 77.1 ml/min; Magnesium 2.2 mg/dl (1.7-2.4); Potassium 3.5 mmol/L (3.5-5.1)
[2021-07-15 02:53] LABS: Partial Thromboplastin Ratio 2.5
[2021-07-15 03:17] LABS: Partial Thromboplastin Time 69.1 Seconds (21.0-31.0)
[2021-07-15 10:35] LABS: Partial Thromboplastin Ratio 2.1
[2021-07-15 10:42] LABS: Partial Thromboplastin Time 57.2 Seconds (21.0-31.0)
--- NOTE | 2021-07-15 11:19 | Pulmonology Progress Note ---
Date of Service July 15, 2021 Assessment & Plan (1) Pulmonary emboli: Acute cor pulmonale presence: unspecified Chronicity: acute Pulmonary embolism type: saddle Qualified Code(s): I26.92 - Saddle embolus of pulmonary artery without acute cor pulmonale (2) DVT (deep venous thrombosis): Plan: -- Pulmonary embolism sPESI: 1, 8.9% mortality Troponin 77, BNP 137 Homocystine level within normal limit Unprovoked Case was discussed with manager civil at [place] on 07/12/[address] Reyes, recommended to continue with heparin drip for the time being and if there is any worsening then transferring the patient if need be EKG on presentation: Sinus tachycardia with right axis deviation, T wave inver sions on the lateral leads 2D echo 07/12/2021: EF 55 to 60%, moderately reduced right-ventricular function, mildly dilated RV -- Acute left-sided DVT Left femoral popliteal vein Plan: Okay to transition to DOACs 2 steps prior to discharge as he was most likely need oxygen on discharge Continue with incentive spirometry Case was discussed with RN No further recommendation from pulmonary perspective. We will sign off Please call directly with any questions Please note the above document was generated using voice recognition software. It may contain grammatical, syntax or spelling errors.Any formal questions or concerns about the content, text or information contained within the body of this dictation should be directly addressed to the provider for clarification. Admission and Anticipated Discharge Date Admission Date: July 12, 2021 Subjective Patient seen and examined at bedside. No acute distress, no adverse events overnight. Denies any chest pain, no shortness of breath, no headache, no nausea, no vomiting No hematuria, no hematochezia. Has been using incentive spirometry and going up to 2000 mL Patient was saturating 87-88% on room air when I initially started to check the pulse ox. It went up to 94-95% when he started to take deep breaths. Review of Systems Review of Systems: All systems reviewed & are unremarkable except as noted in Subjective Physical Exam Physical Exam: Constitutional: No acute distress HEENT: EOMI, PERRLA Respiratory system: Good air entry bilaterally, no wheeze, no rhonchi, no crackles CVS: S1-S2 positive, no murmurs or gallops, tachycardia Abdomen: Soft, nontender, nondistended, positive bowel sounds x4, obese Extremities: +2 pulses bilaterally radialis/ dorsalis pedis, no cyanosis, +1 pitting edema bilateral lower extremity Neuro: Awake alert oriented x3 Psych: Normal mood and affect G/U: No Ashley Skin: no rashes, warm and dry Lymphatic: no cervical or axillary lymphadenopathy Results & Data Results & Data ([facility]) Vital Signs (Past 12 Hours) Vital Signs Temp Pulse Pulse Resp BP Pulse Ox 07/15/21 08:03 36.7 C 92 H 20 135/88 91 07/15/21 07:12 85 07/15/21 03:16 36.6 C 92 H 18 136/87 94 07/14/21 23:21 101 H Laboratory Results 07/15/21 01:53 07/15/21 01:53 PG Care Time/CCT Total # of Minutes Spent Total Time Spent with Patient: Total time spent is greater than 50% in coordination of care (as documented) at patient's floor/unit and/or counseling patient: Coding Level of Care Code 86894 Subseq Hosp Care Lvl 2 Diagnoses Pulmonary emboli I26.92 Acute cor pulmonale presence: unspecified Chronicity: acute Pulmonary embolism type: saddle DVT (deep venous thrombosis) I82.409
--- NOTE | 2021-07-15 16:21 | Discharge Summary ---
Date of Service July 15, 2021 Admission HPI Per Admitting Provider This is a pleasant 55 yo male who who presents to the hospital with SOB. Patient states this SOB began this past Sunday and has gradually worsened. He denies any fever, chills, nausea, vomiting, unintentional weight loss. Patient denies any personal history of blood clots, nor family history. Patient reports he has had a sedentary lifestyle over the past few years since [place]. Patient reports prior that he would go to the Gym and run for miles. 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 He does have a sedentary lifestyle and states for 3-4 hours straight regularly. No family history of blood clots. Social history: Lifetime non-smoker. Principal Diagnosis DVT, PE Discharge Exam Constitutional: No acute distress HEENT: EOMI, PERRLA Respiratory system: Good air entry bilaterally, no wheeze, no rhonchi, no crackles CVS: S1-S2 positive, no murmurs or gallops, tachycardia Abdomen: Soft, nontender, nondistended, positive bowel sounds x4, obese Extremities: +2 pulses bilaterally radialis/ dorsalis pedis, no cyanosis, +1 pitting edema bilateral lower extremity Neuro: Awake alert oriented x3 Psych: Normal mood and affect G/U: No Ashley Constitutional WD/WN, vitals as above + obese Eyes PERRL, conjunctivae normal, anicteric sclerae EOM intact bilaterally; no conjunctival abnormality ENMT external ear and nose normal, oropharynx normal Neck trachea midline, no thyromegaly normal visual inspection Respiratory normal respiratory effort, lungs clear to auscultation no respiratory distress Cardiovascular RRR, no murmur, no edema Rate/Rhythm: regular rhythm and + tachycardic Heart Sounds: normal S1 and normal S2; no murmur Extremities: normal capillary refill; no calf tenderness and no pedal edema Gastrointestinal (Abdomen) normal bowel sounds, soft, nontender, no hepatosplenomegaly Inspection/Auscultation: abdomen normal to inspection; abdomen not distended Percussion/Palpation: abdomen soft; abdomen nontender Musculoskeletal no cyanosis or clubbing, extremities motor strength 5/5 Skin no rashes, warm and dry Neurologic PERRL, EOMI, accommodation nl, no face palsy, no dysarthria moves all extremities and awake; not confused Psychiatric A+Ox3, euthymic affect Orientation: alert, oriented to person and cooperative Lymphatic no cervical or axillary lymphadenopathy Discharge Data Allergies Allergy/AdvReac Type Severity Reaction Status Date / Time No Known Allergies Allergy Unverified 07/12/21 14:44 Consultations 07/12/21 15:19 Consult Pulmonology Routine 07/12/21 16:44 ED Decision to Admit Stat Ordered Studies 07/12/21 13:05 CT angio chest PE protocol Stat 07/12/21 14:35 US venous doppler LE Routine Hospital Course (1) Pulmonary emboli: Acute pulmonary emboli and acute deep vein thrombosis Risk factors of sedentary lifestyle and BMI 38. CT scan of chest: 1. Extensive bilateral pulmonary emboli, including several saddle emboli. CT findings consistent with right heart strain. 2. Small cluster of tree-in-bud nodules within the superior segment of the left lower lobe suggestive of an infectious process. Doppler U/S of lower extremities: Left femoral and popliteal vein thrombus. The patient has a sedentary lifestyle, patient is obese, patient travels a lot by car or by plane therefore he is high risk for DVT given his sedentary lifestyle. Patient is referred to floor runner for hypercoagulable state. Patient does not have a primary care doctor. He was referred to primary doctor. At this point patient was discharged on Eliquis and was advised to take at least for 4 months. Patient will follow up with a floor runner to see if he needs to continue anticoagulation more than 4 months. Total Time Total Time Spent Total Time Spent (In Minutes): 45-minute Discharge Plan Discharge Items Patient Disposition: Home - Self-Care Reason For Visit: DIFFICULTY BREATHING, LIGHT HEADED, WEAK Discharge Diagnosis: pulmonary embolism , Deep vein thrombosis Activity: Resume your previous activity Lifting: Gradually increase as tolerated Bathing: No limitations Sexual Activity: When tolerated Exercise/Sports: Gradually increase as tolerated Driving/Machine Use: No limitations Weightbearing: Full weightbearing Non-emergency contact: Primary Care Provider and Specialist Call non-emergency contact if: you have any medication questions and your symptoms worsen Follow-up/Referrals: Delfino Bender MD [Primary Care Provider] - (Please schedule a hospital follow up appointment within one week of discharge.) Suzan Branch MD [Physician] - (A referral has been faxed to Dr. Branch's office on your behalf. They will be in touch with you with appointment info rmation.) Diet: Low Sodium (2gm) Addtl Attending Provider Instructions: please follow with floor runner for further work up . You need to take Apixaban for at least 4 months , avoid any activities than can increase risk of your bleeding Pending Studies at Discharge: Yes Studies:: hypercoagluble work up including Malignancy Stand-Alone Forms: [facility] [email or web address], Smoking Cessation Medications and DC Order Prescriptions: New Eliquis 5 mg (74 tabs) tablets,dose pack 5 mg PO BID Qty: 74 RF: 0 Discharge Orders: Discharge Order (Routine); Ordered 07/15/21 Ordered By: Jeffery Daniels/Other Patient Handouts: DVT Complications, Low-Salt Choices, Exercise for a Healthier Heart, Preventing Deep Vein Thrombosis, DVT Tx Admission Data Admit Date/Time: 07/12/21 15:04 Attending Provider: Jeffery Ayoub Admit Provider: Nirmal Alas Primary Care Provider: Delfino Bender Other Providers: Deanna Duarte ; Terence Fletcher Other Interventions: Discharge Summary Assessment (RN) Last Done: 07/15/21 15:26 Coding Level of Care Code D/C DAY MANAGEMENT >30 MINS Diagnoses Pulmonary emboli I26.92 Acute cor pulmonale presence: unspecified Chronicity: acute Pulmonary embolism type: saddle
[2021-07-18 20:36] LABS: Factor 5 Mutation NEGATIVE
== END 2021-07-15 17:19 | disposition home or self-care (01) | DRG 176 ==
LOC: ED 11:23 → SUATTDRO 15:04 → 2S 16:29 → EDINP 16:49 → SUATTDRO 16:49 → 2S 20:21